=== PATIENT | male | born 1945 | race Caucasian/White ===

== ENCOUNTER 2018-03-19 09:38 | Inpatient (IN) | payer MEDICARE, OTHER ==
[2018-03-19] MEDS: ASPIRIN 81 MG CHEW TABLET PO (10:45)
[2018-03-19] MEDS: METOPROLOL TART 25 MG TABLET PO ×2 (11:35→12:59)
[2018-03-19 11:38] LABS: HEMATOCRIT 34.9 % (42.0-52.0); HEMOGLOBIN 11.7 g/dl (13.5-17.5); MEAN CORPUSCULAR HEMOGLOBIN 31.6 pg (27.0-33.0); MEAN CORPUSCULAR HGB CONC 33.5 g/dl (32.0-36.5); MEAN CORPUSCULAR VOLUME 94.3 fl (80.0-96.0); PLATELET COUNT, AUTOMATED 229 10^3/uL (150-450); RED CELL DISTRIBUTION WIDTH 13.1 % (11.5-14.5); WHITE BLOOD COUNT 6.5 10^3/uL (4.0-10.0)
[2018-03-19 11:45] LABS: AMPHETAMINES LEVEL URINE NEGATIVE (NEGATIVE); BARBITURATES URINE NEGATIVE (NEGATIVE); BENZODIAZEPINES URINE NEGATIVE (NEGATIVE); CANNABINOIDS URINE NEGATIVE (NEGATIVE); COCAINE METABOLITE URINE NEGATIVE (NEGATIVE); METHADONE URINE NEGATIVE (NEGATIVE); OPIATES URINE NEGATIVE (NEGATIVE); PHENCYCLIDINE URINE NEGATIVE (NEGATIVE)
[2018-03-19 11:50] LABS: PARTIAL THROMBOPLASTIN TIME 30.4 SECONDS (25.4-37.6)
[2018-03-19 12:02] LABS: INR 1.17
[2018-03-19 12:07] LABS: CPK CREATINE PHOSPHOKINASE 400 U/L (39-308); MB/CK RELATIVE INDEX 1.18 (< OR =4); TROPONIN I < 0.02 NG/ML (< 0.10)
[2018-03-19] MEDS: METOPROLOL 5 MG/5 ML VIAL IV ×3 (12:59→13:21)
[2018-03-19 13:12] LABS: ACETAMINOPHEN LEVEL < 2.0 UG/ML (10.0-30.0); ALBUMIN 3.8 GM/DL (3.2-5.2); ALBUMIN/GLOBULIN RATIO 1.15 (1.00-1.93); ALKALINE PHOSPHATASE 111 U/L (45-117); ALT/SGPT 19 U/L (12-78); ANION GAP 11 MEQ/L (8-16); AST/SGOT 26 U/L (7-37); BILIRUBIN,DIRECT 0.3 MG/DL (0.0-0.2); BILIRUBIN,TOTAL 0.8 MG/DL (0.2-1.0); BLOOD UREA NITROGEN 32 MG/DL (7-18); CARBON DIOXIDE LEVEL 22 MEQ/L (21-32); CHLORIDE LEVEL 101 MEQ/L (98-107); CREATININE FOR GFR 1.77 MG/DL (0.70-1.30); ETHYL ALCOHOL (ETHANOL) < 0.003 % (0.000-0.010); GLOMERULAR FILTRATION RATE 40.5 (>42); GLUCOSE, FASTING 121 MG/DL (70-100); POTASSIUM SERUM 4.4 MEQ/L (3.5-5.1); SALICYLATE LEVEL < 1.7 MG/DL (5.0-30.0); SODIUM LEVEL 134 MEQ/L (136-145); TOTAL PROTEIN 7.1 GM/DL (6.4-8.2)
[2018-03-19] MEDS: AMIODARONE HCL 150 MG in APPROPRIATE DILUENT 1 EA IV ×2 (13:46→14:15)
[2018-03-19] MEDS: ENOXAPARIN 100MG/1ML SYRINGE (J1650) SC (13:46)
[2018-03-19] MEDS: HumaLOG INSULIN (NovoLOG) PER UNIT SC (17:30)
[2018-03-19] MEDS ORDERED: GLUCAGON FOR INJ 1 MG VIAL (J1610) SC (17:30)
[2018-03-19] MEDS ORDERED: GLUCOSE 4 GM CHEW TABLET PO (17:30)
[2018-03-19] MEDS: diltiaZEM 125 MG in NS 100 ML IV (17:48)
[2018-03-19 19:12] LABS: BEDSIDE GLUCOSE 105 MG/DL (83-110)
[2018-03-19 19:48] LABS: TROPONIN I < 0.02 NG/ML (< 0.10)
[2018-03-19] MEDS: DIGOXIN INJ 0.5 MG/2 ML AMP (J1160) IV ×3 (20:15→23:27)
[2018-03-19] MEDS: NS 500 ML IV (20:15)
[2018-03-19] MEDS ORDERED: DIGOXIN INJ 0.5 MG/2 ML AMP (J1160) IV (22:00)
[2018-03-19 22:28] LABS: BEDSIDE GLUCOSE 125 MG/DL (83-110)
[2018-03-19 23:25] LABS: INR 1.13; PROTHROMBIN TIME 14.6 SECONDS (12.1-14.4)
[2018-03-19 23:26] LABS: PARTIAL THROMBOPLASTIN TIME 38.9 SECONDS (25.4-37.6)
[2018-03-20] MEDS: METOPROLOL TART 25 MG TABLET PO ×6 (00:17→23:21)
[2018-03-20] MEDS: HEPARIN DRIP 25,000 UNITS in APPROPRIATE DILUENT 1 EA IV (00:21)
[2018-03-20] MEDS ORDERED: ENOXAPARIN 100MG/1ML SYRINGE (J1650) SC (02:00)
[2018-03-20] MEDS: HumaLOG INSULIN (NovoLOG) PER UNIT SC (07:30)
[2018-03-20 07:32] LABS: HEMATOCRIT 36.9 % (42.0-52.0); HEMOGLOBIN 12.2 g/dl (13.5-17.5); MEAN CORPUSCULAR HEMOGLOBIN 31.4 pg (27.0-33.0); MEAN CORPUSCULAR HGB CONC 33.1 g/dl (32.0-36.5); MEAN CORPUSCULAR VOLUME 95.1 fl (80.0-96.0); PLATELET COUNT, AUTOMATED 225 10^3/uL (150-450); RED BLOOD COUNT 3.88 10^6/uL (4.30-6.10); RED CELL DISTRIBUTION WIDTH 13.2 % (11.5-14.5); WHITE BLOOD COUNT 5.7 10^3/uL (4.0-10.0)
[2018-03-20 07:47] LABS: INR 1.15; PROTHROMBIN TIME 14.9 SECONDS (12.1-14.4)
[2018-03-20 07:55] LABS: CPK CREATINE PHOSPHOKINASE 189 U/L (39-308); MB/CK RELATIVE INDEX 1.27 (< OR =4); TROPONIN I < 0.02 NG/ML (< 0.10)
[2018-03-20 08:51] LABS: BEDSIDE GLUCOSE 109 MG/DL (83-110)
[2018-03-20] MEDS ORDERED: DIGOXIN INJ 0.5 MG/2 ML AMP (J1160) As Ordered (09:27)
[2018-03-20] MEDS: DIGOXIN INJ 0.5 MG/2 ML AMP (J1160) IV (09:41)
[2018-03-20 13:38] LABS: PARTIAL THROMBOPLASTIN TIME 70.4 SECONDS (25.4-37.6)
[2018-03-20] MEDS: WARFARIN SOD 5 MG TAB PO (17:11)
[2018-03-20 18:17] LABS: ESTIMATED AVERAGE GLUCOSE 137 MG/DL (60-110); HEMOGLOBIN A1c 6.4 %
[2018-03-20 18:45] LABS: ANION GAP 8 MEQ/L (8-16); BLOOD UREA NITROGEN 28 MG/DL (7-18); CALCIUM LEVEL 9.1 MG/DL (8.8-10.2); CARBON DIOXIDE LEVEL 27 MEQ/L (21-32); CHLORIDE LEVEL 103 MEQ/L (98-107); GLOMERULAR FILTRATION RATE 37.3 (>42); GLUCOSE, FASTING 119 MG/DL (70-100); POTASSIUM SERUM 4.1 MEQ/L (3.5-5.1); SODIUM LEVEL 138 MEQ/L (136-145)
[2018-03-20] MEDS: LURASIDONE HCL 40 MG TAB (LATUDA) PO (21:09)
[2018-03-21] MEDS: HEPARIN DRIP 25,000 UNITS in APPROPRIATE DILUENT 1 EA IV (00:13)
[2018-03-21 05:19] LABS: HEMATOCRIT 35.8 % (42.0-52.0); HEMOGLOBIN 11.9 g/dl (13.5-17.5); MEAN CORPUSCULAR HEMOGLOBIN 31.6 pg (27.0-33.0); MEAN CORPUSCULAR HGB CONC 33.2 g/dl (32.0-36.5); MEAN CORPUSCULAR VOLUME 95.2 fl (80.0-96.0); PLATELET COUNT, AUTOMATED 251 10^3/uL (150-450); RED BLOOD COUNT 3.76 10^6/uL (4.30-6.10); RED CELL DISTRIBUTION WIDTH 13.1 % (11.5-14.5)
[2018-03-21 05:32] LABS: INR 1.07; PROTHROMBIN TIME 14.1 SECONDS (12.1-14.4)
[2018-03-21 05:53] LABS: PARTIAL THROMBOPLASTIN TIME 93.3 SECONDS (25.4-37.6)
[2018-03-21 06:25] LABS: ANION GAP 9 MEQ/L (8-16); BLOOD UREA NITROGEN 27 MG/DL (7-18); CALCIUM LEVEL 8.8 MG/DL (8.8-10.2); CARBON DIOXIDE LEVEL 25 MEQ/L (21-32); CHLORIDE LEVEL 108 MEQ/L (98-107); CREATININE FOR GFR 1.82 MG/DL (0.70-1.30); DIGOXIN LEVEL 1.2 NG/ML (0.5-2.0); GLOMERULAR FILTRATION RATE 39.2 (>42); GLUCOSE, FASTING 137 MG/DL (70-100); POTASSIUM SERUM 4.8 MEQ/L (3.5-5.1); SODIUM LEVEL 142 MEQ/L (136-145)
[2018-03-21] MEDS: METOPROLOL TART 25 MG TABLET PO ×3 (06:32→17:04)
[2018-03-21] MEDS ORDERED: AMIODARONE HCL 150 MG in APPROPRIATE DILUENT 1 EA IV (10:31)
[2018-03-21 12:08] LABS: CPK CREATINE PHOSPHOKINASE 101 U/L (39-308); MAGNESIUM LEVEL 1.8 MG/DL (1.8-2.4); MB/CK RELATIVE INDEX 1.49 (< OR =4); TROPONIN I < 0.02 NG/ML (< 0.10)
[2018-03-21] MEDS: WARFARIN SOD 5 MG TAB PO (17:03)
[2018-03-21] MEDS: LURASIDONE HCL 40 MG TAB (LATUDA) PO (17:04)
[2018-03-21 17:27] LABS: CPK CREATINE PHOSPHOKINASE 103 U/L (39-308); MB/CK RELATIVE INDEX 1.46 (< OR =4); TROPONIN I < 0.02 NG/ML (< 0.10)
[2018-03-21 23:14] LABS: CPK CREATINE PHOSPHOKINASE 78 U/L (39-308); MB/CK RELATIVE INDEX 1.54 (< OR =4); TROPONIN I < 0.02 NG/ML (< 0.10)
[2018-03-22] MEDS: HEPARIN DRIP 25,000 UNITS in APPROPRIATE DILUENT 1 EA IV
[2018-03-22] MEDS: METOPROLOL TART 25 MG TABLET PO ×5 (00:02→23:14)
[2018-03-22 05:32] LABS: HEMATOCRIT 35.9 % (42.0-52.0); HEMOGLOBIN 11.6 g/dl (13.5-17.5); MEAN CORPUSCULAR HEMOGLOBIN 30.9 pg (27.0-33.0); MEAN CORPUSCULAR HGB CONC 32.3 g/dl (32.0-36.5); MEAN CORPUSCULAR VOLUME 95.7 fl (80.0-96.0); PLATELET COUNT, AUTOMATED 257 10^3/uL (150-450); RED BLOOD COUNT 3.75 10^6/uL (4.30-6.10); RED CELL DISTRIBUTION WIDTH 13.1 % (11.5-14.5); WHITE BLOOD COUNT 5.6 10^3/uL (4.0-10.0)
[2018-03-22 05:39] LABS: INR 1.18; PROTHROMBIN TIME 15.2 SECONDS (12.1-14.4)
[2018-03-22] MEDS ORDERED: PILL CRUSHER/CUTTER 1 EACH XX (05:45)
[2018-03-22 05:48] LABS: ANION GAP 7 MEQ/L (8-16); BLOOD UREA NITROGEN 27 MG/DL (7-18); CALCIUM LEVEL 8.3 MG/DL (8.8-10.2); CARBON DIOXIDE LEVEL 26 MEQ/L (21-32); CHLORIDE LEVEL 108 MEQ/L (98-107); CPK CREATINE PHOSPHOKINASE 67 U/L (39-308); CREATININE FOR GFR 1.77 MG/DL (0.70-1.30); GLOMERULAR FILTRATION RATE 40.5 (>42); GLUCOSE, FASTING 131 MG/DL (70-100); MB/CK RELATIVE INDEX 1.79 (< OR =4); POTASSIUM SERUM 4.4 MEQ/L (3.5-5.1); SODIUM LEVEL 141 MEQ/L (136-145); TROPONIN I < 0.02 NG/ML (< 0.10)
[2018-03-22] MEDS: DIGOXIN INJ 0.5 MG/2 ML AMP (J1160) IV (08:38)
[2018-03-22] MEDS: LURASIDONE HCL 40 MG TAB (LATUDA) PO (16:55)
[2018-03-22] MEDS: WARFARIN SOD 5 MG TAB PO (16:56)
[2018-03-22] MEDS: HumaLOG INSULIN (NovoLOG) PER UNIT SC (21:00)
[2018-03-22 23:24] LABS: BEDSIDE GLUCOSE 147 MG/DL (83-110)
[2018-03-23] MEDS: OLANZapine 5 MG TAB PO ×3 (03:03→18:39)
[2018-03-23] MEDS: HEPARIN DRIP 25,000 UNITS in APPROPRIATE DILUENT 1 EA IV (03:09)
[2018-03-23] MEDS: METOPROLOL TART 25 MG TABLET PO ×4 (05:00→23:00)
[2018-03-23 05:21] LABS: HEMATOCRIT 37.1 % (42.0-52.0); HEMOGLOBIN 12.3 g/dl (13.5-17.5); MEAN CORPUSCULAR HGB CONC 33.2 g/dl (32.0-36.5); MEAN CORPUSCULAR VOLUME 96.6 fl (80.0-96.0); PLATELET COUNT, AUTOMATED 279 10^3/uL (150-450); RED BLOOD COUNT 3.84 10^6/uL (4.30-6.10); RED CELL DISTRIBUTION WIDTH 13.3 % (11.5-14.5); WHITE BLOOD COUNT 6.1 10^3/uL (4.0-10.0)
[2018-03-23 05:36] LABS: INR 1.48; PROTHROMBIN TIME 18.2 SECONDS (12.1-14.4)
[2018-03-23 05:51] LABS: PARTIAL THROMBOPLASTIN TIME 110.9 SECONDS (25.4-37.6)
[2018-03-23 06:02] LABS: ANION GAP 9 MEQ/L (8-16); BLOOD UREA NITROGEN 32 MG/DL (7-18); CALCIUM LEVEL 8.8 MG/DL (8.8-10.2); CARBON DIOXIDE LEVEL 24 MEQ/L (21-32); CHLORIDE LEVEL 105 MEQ/L (98-107); CREATININE FOR GFR 1.84 MG/DL (0.70-1.30); DIGOXIN LEVEL 1.1 NG/ML (0.5-2.0); GLOMERULAR FILTRATION RATE 38.7 (>42); GLUCOSE, FASTING 146 MG/DL (70-100); POTASSIUM SERUM 5.1 MEQ/L (3.5-5.1); SODIUM LEVEL 138 MEQ/L (136-145)
[2018-03-23] MEDS: HumaLOG INSULIN (NovoLOG) PER UNIT SC ×4 (08:27→21:00)
[2018-03-23] MEDS: DIGOXIN INJ 0.5 MG/2 ML AMP (J1160) IV ×2 (10:04→15:50)
[2018-03-23 12:13] LABS: BEDSIDE GLUCOSE 78 MG/DL (83-110)
[2018-03-23 12:35] LABS: INR 1.78
[2018-03-23 12:36] LABS: PARTIAL THROMBOPLASTIN TIME 83.3 SECONDS (25.4-37.6)
[2018-03-23] MEDS: WARFARIN SOD 5 MG TAB PO (15:50)
[2018-03-23 17:47] LABS: BEDSIDE GLUCOSE 146 MG/DL (83-110)
[2018-03-23] MEDS: LURASIDONE HCL 40 MG TAB (LATUDA) PO (18:00)
[2018-03-23 18:33] LABS: INR 1.96; PROTHROMBIN TIME 22.7 SECONDS (12.1-14.4)
[2018-03-23 18:34] LABS: PARTIAL THROMBOPLASTIN TIME 62.9 SECONDS (25.4-37.6)
[2018-03-23] MEDS: HEPARIN SOD (PORCINE) 5000 UNITS/ML VIAL IV (19:33)
[2018-03-23] MEDS: METOPROLOL 5 MG/5 ML VIAL IV ×2 (20:20→20:24)
[2018-03-23] MEDS ORDERED: METOPROLOL 5 MG/5 ML VIAL As Ordered (20:21)
[2018-03-23] MEDS: METOPROLOL TART 50 MG TAB PO (20:35)
[2018-03-23] MEDS: RAMELTEON 8 MG TAB (ROZEREM) PO ×2 (21:00→21:21)
[2018-03-23 21:21] LABS: BEDSIDE GLUCOSE 75 MG/DL (83-110)
[2018-03-24 00:11] LABS: BEDSIDE GLUCOSE 124 MG/DL (83-110)
[2018-03-24 02:36] LABS: PARTIAL THROMBOPLASTIN TIME 191.8 SECONDS (25.4-37.6)
[2018-03-24 05:35] LABS: HEMATOCRIT 39.6 % (42.0-52.0); HEMOGLOBIN 12.7 g/dl (13.5-17.5); MEAN CORPUSCULAR HEMOGLOBIN 31.3 pg (27.0-33.0); MEAN CORPUSCULAR HGB CONC 32.1 g/dl (32.0-36.5); MEAN CORPUSCULAR VOLUME 97.5 fl (80.0-96.0); PLATELET COUNT, AUTOMATED 279 10^3/uL (150-450); RED BLOOD COUNT 4.06 10^6/uL (4.30-6.10); RED CELL DISTRIBUTION WIDTH 13.2 % (11.5-14.5); WHITE BLOOD COUNT 5.8 10^3/uL (4.0-10.0)
[2018-03-24 05:49] LABS: PROTHROMBIN TIME 28.4 SECONDS (12.1-14.4)
[2018-03-24 05:50] LABS: PARTIAL THROMBOPLASTIN TIME 67.3 SECONDS (25.4-37.6)
[2018-03-24 05:57] LABS: ANION GAP 2 MEQ/L (8-16); BLOOD UREA NITROGEN 29 MG/DL (7-18); CALCIUM LEVEL 9.1 MG/DL (8.8-10.2); CARBON DIOXIDE LEVEL 30 MEQ/L (21-32); CHLORIDE LEVEL 112 MEQ/L (98-107); CREATININE FOR GFR 1.91 MG/DL (0.70-1.30); GLOMERULAR FILTRATION RATE 37.1 (>42); GLUCOSE, FASTING 114 MG/DL (70-100); POTASSIUM SERUM 5.6 MEQ/L (3.5-5.1); SODIUM LEVEL 144 MEQ/L (136-145)
[2018-03-24] MEDS: METOPROLOL TART 25 MG TABLET PO (06:27)
[2018-03-24] MEDS: HEPARIN DRIP 25,000 UNITS in APPROPRIATE DILUENT 1 EA IV (06:33)
[2018-03-24] MEDS: HumaLOG INSULIN (NovoLOG) PER UNIT SC ×4 (08:00→20:30)
[2018-03-24 10:43] LABS: INR 2.67; PARTIAL THROMBOPLASTIN TIME 37.7 SECONDS (25.4-37.6)
[2018-03-24 11:09] LABS: BEDSIDE GLUCOSE 81 MG/DL (83-110)
[2018-03-24] MEDS: METOPROLOL TART 50 MG TAB PO ×2 (11:19→16:43)
[2018-03-24] MEDS: LURASIDONE HCL 40 MG TAB (LATUDA) PO (16:40)
[2018-03-24] MEDS: WARFARIN SOD 5 MG TAB PO (16:41)
[2018-03-24] MEDS: OLANZapine 5 MG TAB PO (16:44)
[2018-03-24 17:11] LABS: BEDSIDE GLUCOSE 193 MG/DL (83-110)
[2018-03-24 17:11] LABS: BEDSIDE GLUCOSE 192 MG/DL (83-110)
[2018-03-24] MEDS: METOPROLOL 5 MG/5 ML VIAL IV (18:48)
[2018-03-24] MEDS: DEXTROSE 50% 50 ML SYRINGE IV ×2 (19:45→20:35)
[2018-03-24] MEDS: ASPIRIN 81 MG ENTERIC TAB PO (20:28)
[2018-03-24] MEDS: RAMELTEON 8 MG TAB (ROZEREM) PO (20:29)
[2018-03-24] MEDS: SIMVASTATIN 40 MG TAB PO (20:29)
[2018-03-24] MEDS: ISOSORBIDE MON. (IMDUR) 30 MG XR TAB PO (20:30)
[2018-03-24 21:20] LABS: BEDSIDE GLUCOSE 49 MG/DL (83-110)
[2018-03-24 21:20] LABS: BEDSIDE GLUCOSE 113 MG/DL (83-110)
[2018-03-24 21:20] LABS: BEDSIDE GLUCOSE 90 MG/DL (83-110)
[2018-03-24 21:52] LABS: BEDSIDE GLUCOSE 109 MG/DL (83-110)
[2018-03-25 05:32] LABS: HEMATOCRIT 40.2 % (42.0-52.0); HEMOGLOBIN 13.1 g/dl (13.5-17.5); MEAN CORPUSCULAR HEMOGLOBIN 31.6 pg (27.0-33.0); MEAN CORPUSCULAR HGB CONC 32.6 g/dl (32.0-36.5); MEAN CORPUSCULAR VOLUME 97.1 fl (80.0-96.0); PLATELET COUNT, AUTOMATED 323 10^3/uL (150-450); RED BLOOD COUNT 4.14 10^6/uL (4.30-6.10); RED CELL DISTRIBUTION WIDTH 13.2 % (11.5-14.5); WHITE BLOOD COUNT 7.7 10^3/uL (4.0-10.0)
[2018-03-25 05:43] LABS: INR 3.88; PARTIAL THROMBOPLASTIN TIME 45.7 SECONDS (25.4-37.6)
[2018-03-25 05:52] LABS: ANION GAP 7 MEQ/L (8-16); BLOOD UREA NITROGEN 37 MG/DL (7-18); CALCIUM LEVEL 9.2 MG/DL (8.8-10.2); CARBON DIOXIDE LEVEL 25 MEQ/L (21-32); CHLORIDE LEVEL 107 MEQ/L (98-107); CREATININE FOR GFR 2.51 MG/DL (0.70-1.30); GLUCOSE, FASTING 139 MG/DL (70-100); POTASSIUM SERUM 5.3 MEQ/L (3.5-5.1); SODIUM LEVEL 139 MEQ/L (136-145)
[2018-03-25] MEDS: METOPROLOL TART 50 MG TAB PO ×4 (05:57→20:27)
[2018-03-25] MEDS: ACETAMINOPHEN TAB 650MG DOSE (2X325MG) PO ×3 (06:02→20:09)
[2018-03-25] MEDS: HumaLOG INSULIN (NovoLOG) PER UNIT SC ×4 (07:30→20:54)
[2018-03-25] MEDS ORDERED: SLF 3 ML SYR IV (09:00)
[2018-03-25 11:52] LABS: BEDSIDE GLUCOSE 152 MG/DL (83-110)
[2018-03-25] MEDS: DIGOXIN 0.125 MG TAB PO (11:56)
[2018-03-25] MEDS: SLF 3 ML SYR IV ×2 (13:45→21:14)
[2018-03-25] MEDS: LURASIDONE HCL 40 MG TAB (LATUDA) PO (18:12)
[2018-03-25] MEDS: SIMVASTATIN 40 MG TAB PO (20:09)
[2018-03-25] MEDS: RAMELTEON 8 MG TAB (ROZEREM) PO (20:09)
[2018-03-25] MEDS: ASPIRIN 81 MG ENTERIC TAB PO (20:09)
[2018-03-26 03:15] LABS: BEDSIDE GLUCOSE 117 MG/DL (83-110)
[2018-03-26 03:15] LABS: BEDSIDE GLUCOSE 173 MG/DL (83-110)
[2018-03-26] MEDS: SLF 3 ML SYR IV ×2 (06:01→14:23)
[2018-03-26 06:25] LABS: HEMATOCRIT 35.7 % (42.0-52.0); HEMOGLOBIN 11.6 g/dl (13.5-17.5); MEAN CORPUSCULAR HEMOGLOBIN 31.7 pg (27.0-33.0); MEAN CORPUSCULAR HGB CONC 32.5 g/dl (32.0-36.5); MEAN CORPUSCULAR VOLUME 97.5 fl (80.0-96.0); PLATELET COUNT, AUTOMATED 276 10^3/uL (150-450); RED BLOOD COUNT 3.66 10^6/uL (4.30-6.10); RED CELL DISTRIBUTION WIDTH 13.2 % (11.5-14.5); WHITE BLOOD COUNT 5.1 10^3/uL (4.0-10.0)
[2018-03-26 06:40] LABS: INR 3.92; PROTHROMBIN TIME 39.3 SECONDS (12.1-14.4)
[2018-03-26 07:05] LABS: ANION GAP 7 MEQ/L (8-16); BLOOD UREA NITROGEN 42 MG/DL (7-18); CALCIUM LEVEL 8.4 MG/DL (8.8-10.2); CARBON DIOXIDE LEVEL 24 MEQ/L (21-32); CHLORIDE LEVEL 109 MEQ/L (98-107); CREATININE FOR GFR 2.44 MG/DL (0.70-1.30); GLOMERULAR FILTRATION RATE 27.9 (>42); GLUCOSE, FASTING 114 MG/DL (70-100); POTASSIUM SERUM 4.2 MEQ/L (3.5-5.1); SODIUM LEVEL 140 MEQ/L (136-145)
[2018-03-26] MEDS: HumaLOG INSULIN (NovoLOG) PER UNIT SC ×2 (10:00→12:00)
[2018-03-26] MEDS: METOPROLOL TART 50 MG TAB PO (10:00)
[2018-03-26] MEDS: DIGOXIN 0.0625MG PER 1/2TABLET PO (10:01)
[2018-03-28] MEDS ORDERED: WARFARIN SOD 3 MG TAB PO (17:00)
[2018-03-28 23:28] LABS: BEDSIDE GLUCOSE 84 MG/DL (83-110)
== END 2018-03-26 16:30 | DRG 309 ==
LOC: M MSPAV 03-25 15:15 → M ED 09:38 → M PCU 03-20 16:25 → M ED INP 16:22 → M ICU 22:02
DX: I48.91 Unspecified atrial fibrillation (principal); F31.10 Bipolar disorder, current episode manic without psychotic features, unspecified; N17.9 Acute kidney failure, unspecified; I12.9 Hypertensive chronic kidney disease with stage 1 through stage 4 chronic kidney disease, or unspecified chronic kidney disease; E78.5 Hyperlipidemia, unspecified; E11.22 Type 2 diabetes mellitus with diabetic chronic kidney disease; E87.5 Hyperkalemia; I25.10 Atherosclerotic heart disease of native coronary artery without angina pectoris; E11.649 Type 2 diabetes mellitus with hypoglycemia without coma; R19.7 Diarrhea, unspecified; N18.3 Chronic kidney disease, stage 3 (moderate); Z87.891 Personal history of nicotine dependence; Z91.14 Patient's other noncompliance with medication regimen; Z95.1 Presence of aortocoronary bypass graft; Z95.2 Presence of prosthetic heart valve

== ENCOUNTER 2018-03-26 16:28 | Inpatient (IN) | payer MEDICARE, OTHER ==
[~2018-03-26 16:28] MED LIST: ACETAMINOPHEN TAB 650MG DOSE (2X325MG) PO; DEXTROSE 50% 50 ML SYRINGE IV; GLUCAGON FOR INJ 1 MG VIAL (J1610) SC; GLUCOSE 4 GM CHEW TABLET PO; MAALOX 30 ML SUSP *UDC PO; MOM 30ML SUSPENSION UDC PO; OLANZapine ORAL DISINTEGRATING TAB 5MG PO
[2018-03-26] MEDS: HumaLOG INSULIN (NovoLOG) PER UNIT SC ×2 (17:30→21:00)
[2018-03-26] MEDS: LURASIDONE HCL 40 MG TAB (LATUDA) PO (18:19)
[2018-03-26] MEDS: METOPROLOL TART 50 MG TAB PO ×2 (18:20→21:25)
[2018-03-26] MEDS: ASPIRIN 81 MG CHEW TABLET PO (21:25)
[2018-03-26] MEDS: RAMELTEON 8 MG TAB (ROZEREM) PO (21:25)
[2018-03-26] MEDS: SIMVASTATIN 40 MG TAB PO (21:25)
[2018-03-26 21:28] LABS: BEDSIDE GLUCOSE 155 MG/DL (83-110)
[2018-03-27] MEDS: HumaLOG INSULIN (NovoLOG) PER UNIT SC ×4 (06:37→20:25)
[2018-03-27 06:44] LABS: BEDSIDE GLUCOSE 118 MG/DL (83-110)
[2018-03-27] MEDS: METOPROLOL TART 50 MG TAB PO ×3 (08:59→20:24)
[2018-03-27] MEDS ORDERED: VENLAFAXINE 37.5 MG TAB PO (09:00)
[2018-03-27] MEDS: DIGOXIN 0.0625MG PER 1/2TABLET PO (09:00)
[2018-03-27 09:15] LABS: HEMOGLOBIN 12.6 g/dl (13.5-17.5); MEAN CORPUSCULAR HEMOGLOBIN 31.8 pg (27.0-33.0); MEAN CORPUSCULAR HGB CONC 32.3 g/dl (32.0-36.5); MEAN CORPUSCULAR VOLUME 98.5 fl (80.0-96.0); PLATELET COUNT, AUTOMATED 299 10^3/uL (150-450); RED BLOOD COUNT 3.96 10^6/uL (4.30-6.10); RED CELL DISTRIBUTION WIDTH 13.2 % (11.5-14.5); WHITE BLOOD COUNT 5.3 10^3/uL (4.0-10.0)
[2018-03-27 09:21] LABS: ANION GAP 5 MEQ/L (8-16); BLOOD UREA NITROGEN 40 MG/DL (7-18); CALCIUM LEVEL 9.3 MG/DL (8.8-10.2); CARBON DIOXIDE LEVEL 28 MEQ/L (21-32); CHLORIDE LEVEL 112 MEQ/L (98-107); CREATININE FOR GFR 2.22 MG/DL (0.70-1.30); GLOMERULAR FILTRATION RATE 31.2 (>42); GLUCOSE, FASTING 61 MG/DL (70-100); SODIUM LEVEL 145 MEQ/L (136-145)
[2018-03-27 09:40] LABS: INR 2.35; PROTHROMBIN TIME 26.2 SECONDS (12.1-14.4)
[2018-03-27 12:20] LABS: BEDSIDE GLUCOSE 122 MG/DL (83-110)
[2018-03-27] MEDS: lamoTRIgine 25 MG TAB PO ×2 (13:06→13:23)
[2018-03-27] MEDS: WARFARIN SOD 4 MG TAB PO (16:06)
[2018-03-27 17:16] LABS: BEDSIDE GLUCOSE 103 MG/DL (83-110)
[2018-03-27] MEDS: LURASIDONE HCL 40 MG TAB (LATUDA) PO (17:59)
[2018-03-27 20:20] LABS: BEDSIDE GLUCOSE 162 MG/DL (83-110)
[2018-03-27] MEDS: RAMELTEON 8 MG TAB (ROZEREM) PO (20:24)
[2018-03-27] MEDS: SIMVASTATIN 40 MG TAB PO (20:24)
[2018-03-27] MEDS: ASPIRIN 81 MG CHEW TABLET PO (20:24)
[2018-03-28] MEDS: HumaLOG INSULIN (NovoLOG) PER UNIT SC ×4 (06:52→20:51)
[2018-03-28 06:53] LABS: BEDSIDE GLUCOSE 110 MG/DL (83-110)
[2018-03-28 07:08] LABS: INR 2.25; PROTHROMBIN TIME 25.3 SECONDS (12.1-14.4)
[2018-03-28 07:34] LABS: ANION GAP 10 MEQ/L (8-16); BLOOD UREA NITROGEN 39 MG/DL (7-18); CALCIUM LEVEL 8.4 MG/DL (8.8-10.2); CARBON DIOXIDE LEVEL 24 MEQ/L (21-32); CHLORIDE LEVEL 112 MEQ/L (98-107); CREATININE FOR GFR 2.07 MG/DL (0.70-1.30); DIGOXIN LEVEL 1.1 NG/ML (0.5-2.0); GLOMERULAR FILTRATION RATE 33.8 (>42); GLUCOSE, FASTING 108 MG/DL (70-100); POTASSIUM SERUM 4.8 MEQ/L (3.5-5.1); SODIUM LEVEL 146 MEQ/L (136-145)
[2018-03-28] MEDS: DIGOXIN 0.0625MG PER 1/2TABLET PO (08:44)
[2018-03-28] MEDS: VENLAFAXINE 25 MG TAB PO (08:44)
[2018-03-28] MEDS: lamoTRIgine 25 MG TAB PO (08:44)
[2018-03-28] MEDS: METOPROLOL TART 50 MG TAB PO ×3 (08:44→20:51)
[2018-03-28] MEDS: WARFARIN SOD 4 MG TAB PO (16:20)
[2018-03-28 16:27] LABS: BEDSIDE GLUCOSE 152 MG/DL (83-110)
[2018-03-28] MEDS: LURASIDONE HCL 40 MG TAB (LATUDA) PO (17:44)
[2018-03-28] MEDS: RAMELTEON 8 MG TAB (ROZEREM) PO (20:48)
[2018-03-28] MEDS: ASPIRIN 81 MG CHEW TABLET PO (20:48)
[2018-03-28] MEDS: SIMVASTATIN 40 MG TAB PO (20:48)
[2018-03-28 20:49] LABS: BEDSIDE GLUCOSE 110 MG/DL (83-110)
[2018-03-29 06:47] LABS: BEDSIDE GLUCOSE 112 MG/DL (83-110)
[2018-03-29 07:08] LABS: ANION GAP 7 MEQ/L (8-16); BLOOD UREA NITROGEN 38 MG/DL (7-18); CALCIUM LEVEL 8.5 MG/DL (8.8-10.2); CARBON DIOXIDE LEVEL 25 MEQ/L (21-32); CHLORIDE LEVEL 111 MEQ/L (98-107); CREATININE FOR GFR 1.93 MG/DL (0.70-1.30); GLOMERULAR FILTRATION RATE 36.6 (>42); GLUCOSE, FASTING 104 MG/DL (70-100); POTASSIUM SERUM 4.5 MEQ/L (3.5-5.1); SODIUM LEVEL 143 MEQ/L (136-145)
[2018-03-29 07:15] LABS: INR 2.12; PROTHROMBIN TIME 24.2 SECONDS (12.1-14.4)
[2018-03-29] MEDS: HumaLOG INSULIN (NovoLOG) PER UNIT SC ×4 (07:36→21:00)
[2018-03-29] MEDS: lamoTRIgine 25 MG TAB PO (08:47)
[2018-03-29] MEDS: VENLAFAXINE 25 MG TAB PO (08:47)
[2018-03-29] MEDS: DIGOXIN 0.0625MG PER 1/2TABLET PO (08:47)
[2018-03-29] MEDS: METOPROLOL TART 50 MG TAB PO ×3 (08:49→21:47)
[2018-03-29 12:22] LABS: BEDSIDE GLUCOSE 89 MG/DL (83-110)
[2018-03-29] MEDS: WARFARIN SOD 5 MG TAB PO (16:06)
[2018-03-29 17:30] LABS: BEDSIDE GLUCOSE 223 MG/DL (83-110)
[2018-03-29] MEDS: LURASIDONE HCL 40 MG TAB (LATUDA) PO (17:45)
[2018-03-29 21:45] LABS: BEDSIDE GLUCOSE 70 MG/DL (83-110)
[2018-03-29] MEDS: ASPIRIN 81 MG CHEW TABLET PO (21:45)
[2018-03-29] MEDS: SIMVASTATIN 40 MG TAB PO (21:45)
[2018-03-29] MEDS: RAMELTEON 8 MG TAB (ROZEREM) PO (21:46)
[2018-03-30 06:18] LABS: BEDSIDE GLUCOSE 91 MG/DL (83-110)
[2018-03-30] MEDS: HumaLOG INSULIN (NovoLOG) PER UNIT SC ×2 (06:30→12:08)
[2018-03-30 07:32] LABS: INR 2.64; PROTHROMBIN TIME 28.7 SECONDS (12.1-14.4)
[2018-03-30 07:34] LABS: ANION GAP 5 MEQ/L (8-16); BLOOD UREA NITROGEN 38 MG/DL (7-18); CALCIUM LEVEL 8.3 MG/DL (8.8-10.2); CARBON DIOXIDE LEVEL 26 MEQ/L (21-32); CHLORIDE LEVEL 112 MEQ/L (98-107); CREATININE FOR GFR 2.02 MG/DL (0.70-1.30); GLOMERULAR FILTRATION RATE 34.7 (>42); GLUCOSE, FASTING 104 MG/DL (70-100); POTASSIUM SERUM 4.9 MEQ/L (3.5-5.1); SODIUM LEVEL 143 MEQ/L (136-145)
[2018-03-30] MEDS: DIGOXIN 0.0625MG PER 1/2TABLET PO (08:46)
[2018-03-30] MEDS: METOPROLOL TART 50 MG TAB PO (08:46)
[2018-03-30] MEDS: VENLAFAXINE 25 MG TAB PO (08:46)
[2018-03-30] MEDS: lamoTRIgine 25 MG TAB PO (08:46)
[2018-03-30 12:18] LABS: BEDSIDE GLUCOSE 127 MG/DL (83-110)
== END 2018-03-30 13:50 | disposition home or self-care (01) | DRG 885 ==
LOC: M PSY 16:28
PROVIDERS: Family Medicine
DX: F31.9 Bipolar disorder, unspecified (principal); N18.4 Chronic kidney disease, stage 4 (severe); Z79.82 Long term (current) use of aspirin; Z79.899 Other long term (current) drug therapy; F41.9 Anxiety disorder, unspecified; I48.91 Unspecified atrial fibrillation; Z79.01 Long term (current) use of anticoagulants; I25.10 Atherosclerotic heart disease of native coronary artery without angina pectoris; Z95.1 Presence of aortocoronary bypass graft; E78.5 Hyperlipidemia, unspecified; Z95.2 Presence of prosthetic heart valve; E11.9 Type 2 diabetes mellitus without complications